=== PATIENT | female | born 1990 ===

== ENCOUNTER 2023-08-10 09:14 | Outpatient (CLI) | payer OTHER | END 2023-08-10 09:26 | disposition home or self-care (01) | LOC: MRI 09:14 | DX: N97.9 Female infertility, unspecified (principal); E28.2 Polycystic ovarian syndrome; Q51.3 Bicornate uterus | CPT/HCPCS: 72198 ==

== ENCOUNTER 2024-04-28 07:48 | Outpatient (CLI) | payer OTHER | END 2024-04-28 08:58 | disposition home or self-care (01) | LOC: NST 07:48 | PROVIDERS: ATTEND Obstetrics & Gynecology Maternal & Fetal Medicine | DX: Z34.83 Encounter for supervision of other normal pregnancy, third trimester (principal) ==

== ENCOUNTER 2024-05-02 23:32 | Inpatient (IN) | payer OTHER ==
[~2024-05-02] VITALS: Ht 162.6 cm; Wt 90.7 kg
[2024-05-02 23:25] VITALS: BP 114/74
[2024-05-02 23:59] LABS: HEMATOCRIT 39.7 % (36.0-45.00); HEMOGLOBIN 13.2 g/dL (12.0-15.00); MEAN CORPUSCULAR HGB CONC 33.3 g/dl (32.0-36.0); PLATELET COUNT 180 K/uL (150-450); RED BLOOD COUNT 4.41 M/uL (4.00-6.00); RED CELL DISTRIBUTION WIDTH 13.7 % (11.5-14.5)
[2024-05-03] MEDS ORDERED: OXYTOCIN 10 UNITS/ML VIAL ONE ×2 (00:15→03:39)
[2024-05-03] MEDS ORDERED: ERYTHROMYCIN BASE OPHT 1GM EACH TUBE OP ONE (00:15)
[2024-05-03 00:16] LABS: ALBUMIN 2.7 gm/dL (3.4-5.0); BILIRUBIN TOTAL 0.22 mg/dL (0.3-1.2); CALCIUM 9.4 mg/dL (8.5-10.1); CREATININE SERUM 0.36 mg/dL (0.55-1.02); GFR 210.24; GLOBULINA 4.2 G/DL (2.4-3.5); POTASSIUM 3.79 mEq/L (3.5-5.1); TOTAL PROTEIN 6.9 gm/dL (6.4-8.2)
[2024-05-03] MEDS ORDERED: CEFAZOLIN SODIUM 1,000 MG VIAL ONE (00:17)
[2024-05-03] MEDS ORDERED: CARBOPROST TROMETHAMINE 250 MCG/ML AMPUL IM ONE (00:34)
[2024-05-03 01:12] LABS: INR 1.07; PARTIAL THROMBOPLASTIN TIME 25.9 SECONDS (22.0-34.0); PROTHROMBIN TIME 11.6 SECONDS (9.0-11.5)
[2024-05-03] MEDS ORDERED: MEPERIDINE HCL/PF 50 MG/ML VIAL IM PRN (01:30)
[2024-05-03] MEDS ORDERED: ONDANSETRON HCL 2 MG/ML VIAL IV PRN (01:30)
[2024-05-03] MEDS ORDERED: OXYTOCIN 1,000 ML IV SCH (01:30)
[2024-05-03] MEDS ORDERED: IBUprofen 400 MG TABLET PO PRN (01:30)
[2024-05-03] MEDS ORDERED: PRENATAL TABLE1 EAC4 PO (02:14)
[2024-05-03 04:12] VITALS: BP 115/77
[2024-05-03] MEDS ORDERED: OxyCODONE HCL/APAP UD (PERCOCET) PO PRN (08:15)
[2024-05-03 08:40] VITALS: BP 115/68
[2024-05-03 11:15] LABS: HEMATOCRIT 36.4 % (36.0-45.00); HEMOGLOBIN 12.7 g/dL (12.0-15.00); MEAN CORPUSCULAR HEMOGLOBIN 30.7 pg (27.00-32.0); MEAN CORPUSCULAR HGB CONC 34.9 g/dl (32.0-36.0); PLATELET COUNT 191 K/uL (150-450); RED BLOOD COUNT 4.14 M/uL (4.00-6.00); RED CELL DISTRIBUTION WIDTH 13.6 % (11.5-14.5)
[2024-05-03 17:35] VITALS: BP 106/68
[2024-05-03] MEDS ORDERED: MEPERIDINE HCL/PF 50 MG/ML VIAL IM ONE (19:15)
[2024-05-04 00:23] VITALS: BP 97/60
[2024-05-04 09:19] VITALS: BP 108/73
[2024-05-04 18:13] VITALS: BP 111/76
[2024-05-04] MEDS ORDERED: MEPERIDINE HCL/PF 25 MG/ML VIAL IM NR (18:15)
[2024-05-04] MEDS ORDERED: DOCUSATE CALCIUM 240 MG CAPSULE PO SCH (21:00)
[2024-05-05] VITALS: BP 102/66
[2024-05-05 08:00] VITALS: BP 131/85
== END 2024-05-05 08:38 | disposition home or self-care (01) | DRG 786 ==
LOC: OB/GYN 23:32 → LDR 23:32 → OB/GYN 05-03 02:33
PROVIDERS: ADMIT Obstetrics & Gynecology; ATTEND Obstetrics & Gynecology
PROC: 10D00Z1 Extraction of Products of Conception, Low, Open Approach (ICD-10-PCS; principal; 2024-05-02)
PROC: 4A1HXCZ Monitoring of Products of Conception, Cardiac Rate, External Approach (ICD-10-PCS; 2024-05-02)
DX: O67.8 Other intrapartum hemorrhage (principal); O60.14X0 Preterm labor third trimester with preterm delivery third trimester, not applicable or unspecified; Z3A.34 34 weeks gestation of pregnancy; Z37.0 Single live birth; Z20.822 Contact with and (suspected) exposure to COVID-19